=== PATIENT | female | born 1995 | race Two or more races ===

== ENCOUNTER 2023-06-28 22:05 | Emergency (ER) | payer OTHER ==
[2023-06-28 22:29] VITALS: BP 121/75; O2SAT 98
[2023-06-28] MEDS ORDERED: ALBUTEROL NEB 2.5 MG/3 ML INH ONE (23:00)
--- NOTE | 2023-06-28 23:26 | ED Physician Documentation ---
History of Present Illness - Stated complaint Stated Complaint: C+,SOA - Chief complaint Chief Complaint: Resp - History obtained from History obtained from: Patient - Additonal information Additional information: The patient comes to the emergency department chief complaint of rhinorrhea, sore throat, cough, and sense of shortness of breath for the last day. She was just diagnosed with COVID and states she has also been coughing at night when she lays back, and cannot sleep. She is mainly here to see if there is anything we can do for her symptoms. She has been running low-grade fevers. No other complaints at this time. PD PAST MEDICAL HISTORY - Past Medical History Past Medical History: Yes Respiratory: Asthma - Present Medications Home Medications: Ambulatory Orders Medication Instructions Recorded Confirmed Albuterol Sulf [Ventolin Hfa 1 - 2 puffs INH Q4HR PRN #1 each 06/28/23 Inhaler] - Allergies Allergies/Adverse Reactions: Allergies Allergy/AdvReac Type Severity Reaction Status Date / Time aspirin Allergy Hives Verified 06/28/23 22:12 - Social History Does the pt smoke?: No Smoking Status: Never smoker PD ED PE NORMAL - Vitals Vital signs reviewed: Yes - General General: Alert and oriented X 3, No acute distress (The patient appears mildly uncomfortable but otherwise in no apparent distress.), Well developed/nourished - HEENT HEENT: Atraumatic, PERRL, EOMI, Moist mucous membranes, Pharynx benign - Neck Neck: Supple, no meningeal sign - Cardiac Cardiac: RRR, No murmur - Respiratory Respiratory: No respiratory distress, Clear bilaterally - Abdomen Abdomen: Soft, Non tender, Non distended - Derm Derm: Normal color, Warm and dry, No rash - Extremities Extremities: No deformity, No edema - Neuro Neuro: Alert and oriented X 3 - Psych Psych: Normal mood, Normal affect Results - Vitals Vitals: Oxygen O2 Source Room air PD Medical Decision Making - ED course Complexity details: reviewed results, re-evaluated patient, considered differential, d/w patient ED course: The patient overall appeared as though she did not feel well but her physical exam otherwise was unremarkable. She was breathing comfortably and had good oxygen saturation and clear lungs. She was afebrile here. She was not tachycardic. The patient was very concerned that whenever she lays back, she has a coughing fit. She was convinced she needed to have a breathing treatment in the emergency department, even though she was not wheezing and had no bronchospasm or dyspnea. I ultimately ordered 2 puffs of albuterol for her, but she ended up being given a nebulizer treatment with RT. The patient was about the same after the treatment. I have prescribed her an inhaler to have his home as needed, and we have discussed the usual indications for follow-up and return. We discussed symptomatic management at home. Departure - Departure Disposition: , Self Care Clinical Impression: COVID Condition: Stable Instructions: ED Viral Syndrome Prescriptions: Albuterol Sulf [Ventolin Hfa Inhaler] 1 - 2 puffs INH Q4HR PRN #1 each PRN Reason: Shortness Of Air/Wheezing Comments: Your lungs are clear, your oxygen is normal, and there is no evidence of any asthma exacerbation at this point in time. Most likely, the coughing that you are having when you lay down is from the inflammation from the virus itself, as laying down will not trigger a transient asthma exacerbation. You have been treated in the emergency department patricia, and a prescription for albuterol has been electronically transmitted to the [facility] in [place]. Please pick this up in the morning. You may take Tylenol and ibuprofen if you develop any fevers. Forms: PCP List Discharge Date/Time: 06/29/23 00:13
[2023-06-28] MEDS ORDERED: ALBUTEROL 1 PUFF INH STA (23:42)
== END 2023-06-29 00:13 | disposition home or self-care (01) ==
LOC: ED 22:05
DX: U07.1 COVID-19 (principal); J45.909 Unspecified asthma, uncomplicated
CPT/HCPCS: 94640; 99283